=== PATIENT | female | born 2000 | race Caucasian/White ===

== ENCOUNTER → 2021-06-17 | Outpatient (REF) | payer OTHER ==
[2021-06-17 15:41] LABS: GC DNA AMPLIFICATION NEGATIVE (NEGATIVE)
== END ==
LOC: M SFHCWAGY 13:07
PROVIDERS: ATTEND Nurse Practitioner Women's Health
DX: Z12.4 Encounter for screening for malignant neoplasm of cervix (principal); Z11.3 Encounter for screening for infections with a predominantly sexual mode of transmission
CPT/HCPCS: 87661; G0123; G0463

== ENCOUNTER → 2022-06-21 | Outpatient (REF) | payer OTHER | LOC: M PLALAB 13:20 | PROVIDERS: ATTEND Nurse Practitioner Family | DX: Z12.4 Encounter for screening for malignant neoplasm of cervix (principal) | CPT/HCPCS: 87624; G0123 ==